=== PATIENT | male | born 1990 | race Two or more races ===

== ENCOUNTER 2024-06-19 04:05 | Emergency (ER) | payer OTHER ==
[~2024-06-19] VITALS: Ht 182.9 cm; Wt 74.0 kg
--- NOTE | 2024-06-19 04:48 | ED.PDOC ---
History of Present Illness(SKN HPI Comments This is a 34-year-old male presents to the ED chief complaint left index finger swelling pain. Patient states 1 week ago he was pulling some cable and slipped to his hand cutting his left index finger. He does over the past 2 days noted increasing swelling, pain, drainage. He denies numbness or weakness. Chief Complaint: Wound Check Time Seen by MD: 04:07 Primary Care Provider: NONE History of Present Illness: Nurses Notes, Medications, Allergies Allergies: Coded Allergies: NO KNOWN ALLERGIES (Unverified , 07/20/12) Information Source: Patient Mode of Arrival: Ambulatory Past Medical History PAST MEDICAL HISTORY: Denies Surgical History: Denies all surgeries Family History Family History: Unknown Social History Smoker: Cigarettes Alcohol: Denies ETOH Use Drugs: Denies Drug Use Lives In: Home Constitutional: denies: chills, diaphoresis, fatigue, fever, malaise, sweats, weakness, others EENTM: denies: blurred vision, double vision, ear bleeding, ear discharge, ear drainage, ear pain, ear ringing, eye pain, eye redness, hearing loss, mouth pain, mouth swelling, nasal discharge, nose bleeding, nose congestion, nose pain, photophobia, tearing, throat pain, throat swelling, voice changes, others Respiratory: denies: cough, hemoptysis, orthopnea, SOB at rest, shortness of breath, SOB with excertion, stridor, wheezing, others Cardiovascular: denies: chest pain, dizzy spells, diaphoresis, Dyspnea on exertion, edema, irregular heart beat, left arm pain, lightheadedness, palpitations, PND, syncope, others Gastrointestinal: denies: abdomen distended, abdominal pain, blood streaked bowels, constipated, diarrhea, dysphagia, difficulty swallowing, hematemesis, melena, nausea, poor appetite, poor fluid intake, rectal bleeding, rectal pain, vomiting, others Genitourinary: denies: burning, dysuria, flank pain, frequency, hematuria, incontinence, penile discharge, penile sore, pain, testicle pain, testicle swelling, urgency, others Neurological: denies: dizziness, fainting, headache, left sided numbness, left sided weakness, numbness, paresthesia, pre-existing deficit, right sided nu mbness, right sided weakness, seizure, speech problems, tingling, tremors, weakness, others Musculoskeletal: denies: back pain, gout, joint pain, joint swelling, muscle pain, muscle stiffness, neck pain, others Integumetry: reports: wounds (Left index finger); denies: bruises, change in color, change in hair/nails, dryness, laceration, lesions, lumps, rash, others Allergic/Immunocompromised: denies: Difficulty Healing, Frequent Infections, Hives, Itching, others Hematologic/Lymphatic: denies: anemia, blood clots, easy bleeding, easy bruising, swollen glands, others Endocrine: denies: excessive hunger, excessive sweating, excessive thirst, excessive urination, flushing, intolerance to cold, intolerance to heat, unexplained weight gain, unexplained weight loss, others Psychiatric: denies: anxiety, bipolar disorder, depression, hopeless, panic disorder, schizophrenia, sleepless, suicidal, others Physical Exam General Appearance: No Apparent Distress, Normal HEENT: Normal ENT Inspection, Pharynx Normal Neck: Full Range of Motion, Non-Tender, Normal, Normal Inspection Respiratory: Chest Non-Tender, Lungs Clear, No Accessory Muscle Use, No Res piratory Distress, Normal Breath Sounds Cardiovascular: No Edema, No JVD, No Murmur, No Gallop, Normal Peripheral Pulses, Regular Rate/Rhythm Breast Exam: Deferred Gastrointestinal: No Organomegaly, Non Tender, No Pulsatile Mass, Normal Bowel Sounds, Soft Genitalia: Deferred Pelvic: Deferred Rectal: Deferred Extremities: No calf tenderness, Normal capillary refill, Normal inspection, Normal range of motion, Non-tender, No pedal edema Musculoskeletal : Apperance: Normal Neurologic: Alert, wire drawer II-XII nml as Tested, No Motor Deficits, Normal Affect, Normal Mood, No Sensory Deficits Cerebellar Function: Normal Reflexes: Normal Skin: Dry, Normal Color, Warm, Wounds (Left index finger moderate edema distal plantar aspect with center opening and serosanguineous drainage. Cap refill less than 3 seconds. Strength sensory and motion intact.) Lymphatic: No Adenopathy Was a procedure done? Was a procedure done?: No Differential Diagnosis (INTG) Differential Diagnosis: Puncture Wound Differential Diagnosis: Cellulitis Abscess: Abscess X-Ray, Labs, Meds, VS Vital Signs Date Time Temp Pulse Resp B/P (MAP) Pulse Ox O2 Delivery O2 Flow Rate FiO2 06/19/24 05:08 97.7 100 18 116/81 (93) 97 97.7 06/19/24 04:15 97.5 102 18 134/88 (103) 99 X-Ray, Labs, Meds, VS Comment Left index finger x-ray shows no foreign bodies fractures acute findings or osseous lesions. Patient given tetanus and Rocephin IM. We will discharge on outpatient antibiotics. Advised to follow up with his PCP in 2-3 days or return to the ER for wound re-evaluation. Advised to return to the ER for increasing pain, numbness, nausea, vomiting, high fevers or any concerning symptoms. Patient agrees with discharge plan of care. Time of 1ST Reevaluation: 05:11 Reevaluation 1ST: Improved Patient Education/Counseling: Diagnosis, Treatment, Prognosis, Need For Follow Up Family Education/Counseling: No Family Present Departure 1 Departure Time of Disposition: 05:12 Impression: Primary Impression: Finger, blister, infected Disposition: 01 HOME / SELF CARE / HOMELESS Condition: Stable e-Prescriptions Ibuprofen (Ibuprofen) 800 Mg Tab 1 TAB PO TID PRN for 5 Days, #15 TAB 1 Refill Prov: ANNIA OCASIO 06/19/24 Doxycycline Hyclate (Doxycycline Hyclate) 100 Mg Cap 1 CAP PO BID for 7 Days, #14 CAP Prov: ANNIA OCASIO 06/19/24 Discharged With: Self Critical Care Note Critical Care Time?: No Stability Stability form required: ANNIA Sanchez Jun 19, 2024 04:48
[2024-06-19 05:08] VITALS: BP 116/81; PULSE 100; RESP 18; TEMP 97.7; O2SAT 97
[2024-06-19] MEDS ORDERED: DOXY100C4 PO (05:13)
[2024-06-19] MEDS ORDERED: IBUP-1456 PO (05:13)
[2024-06-19] MEDS: cefTRIAXone SOD 1,000 MG VL IM ONE (05:20)
[2024-06-19] MEDS: TETANUS-DIPTH-ACEL PERTUSSIS 0.5ML SYR Tdap IM ONE (05:20)
--- NOTE | 2024-06-19 05:27 | DVH ---
left first digit radiograph CLINICAL INDICATION: r/o fb pain/swelling TECHNIQUE: 3 radiographic views of the left second digit were obtained. Comparison: None FINDINGS: There is no evidence of acute fracture or dislocation. Diffuse soft tissue swelling. No radiopaque foreign body. IMPRESSION: No acute fracture or dislocation.
== END 2024-06-19 05:31 | disposition home or self-care (01) ==
LOC: ER 04:05
DX: S60.421A Blister (nonthermal) of left index finger, initial encounter (principal); L08.89 Other specified local infections of the skin and subcutaneous tissue; F17.210 Nicotine dependence, cigarettes, uncomplicated; W45.8XXA Other foreign body or object entering through skin, initial encounter; Y93.89 Activity, other specified; Y92.89 Other specified places as the place of occurrence of the external cause; Y99.8 Other external cause status
CPT/HCPCS: 73140; 90471; 90715; 96372; 99284; J0696